=== PATIENT | female | born 1960 ===

== ENCOUNTER → 2016-04-04 | Outpatient (CLI) | payer OTHER ==
[2016-04-04 21:09] LABS: SYNOVIAL FLUID APPEARANCE CLOUDY; SYNOVIAL FLUID COLOR AMBER; SYNOVIAL FLUID MONONUC RELAT 5.5 %; SYNOVIAL FLUID POLYNUC RELAT 94.5 %
[2016-04-08 17:39] LABS: LYME DNA PCR CSF OR SYNOVIAL Not detected (Not Detected); LYME DNA SOURCE Synovial Fluid
== END | disposition home or self-care (01) ==
LOC: C.LABSPEC 09:46
PROVIDERS: ATTEND Physician Assistant
DX: M25.462 Effusion, left knee (principal)